=== PATIENT | male | born 1955 | race Caucasian/White ===

== ENCOUNTER → 2018-05-22 | Outpatient (CLI) | payer OTHER ==
[~2018-05-22] MED LIST: CANA300T PO; DILT180T3 PO; PSEU120T9 PO
[2018-05-22 07:40] LABS: BASOPHILS # (AUTO) 0.02 x10^3/uL (0-0.1); BASOPHILS % (AUTO) 0 % (0-1); EOSINOPHILS # (AUTO) 0.24 x10^3/uL (0-0.4); EOSINOPHILS % (AUTO) 3 % (1-7); LYMPHOCYTES # (AUTO) 1.72 x10^3/uL (1-3.4); LYMPHOCYTES % (AUTO) 18 % (22-44); MD NO; MEAN CORPUSCULAR HEMOGLOBIN 32.4 pg (27.5-34.5); MEAN CORPUSCULAR HGB CONC 34.7 g/dL (33.2-36.2); MEAN CORPUSCULAR VOLUME 93.5 fL (81-97); MEAN PLATELET VOLUME 6.8 fL (7.4-10.4); MONOCYTES # (AUTO) 0.81 x10^3/uL (0.2-0.8); MONOCYTES % (AUTO) 8 % (2-9); NEUTROPHILS # (AUTO) 6.99 x10^3/uL (1.8-6.8); NEUTROPHILS % (AUTO) 72 % (42-75); PLATELET COUNT 260 x10^3/uL (130-400); RED BLOOD COUNT 4.91 x10^6/uL (4.38-5.82); RED CELL DISTRIBUTION WIDTH 14.9 % (9.4-14.8)
[2018-05-22 07:53] LABS: ALANINE AMINOTRANSFERASE 34 U/L (12-78); ALBUMIN 4.2 g/dL (3.4-5.0); ANION GAP 7 mmol/L (5-15); CALCIUM 9.2 mg/dL (8.5-10.1); CHLORIDE 104 mmol/L (98-107); CHOLESTEROL, TOTAL 118 mg/dL (140-239); CREATININE 1.23 mg/dL (0.7-1.3); TRIGLYCERIDES 263 mg/dL (50-200); VLDL CHOLESTEROL 53 mg/dL (0-25)
[2018-05-22 08:04] LABS: ALKALINE PHOSPHATASE 73 U/L (45-117); BILIRUBIN,TOTAL 0.6 mg/dL (0.2-1.0); CHOL/HDL RATIO 4.7; HDL CHOL % 21 % (26-37); HDL CHOLESTEROL (DIRECT) 25 mg/dL (40-60); LDL CHOLESTEROL,CALCULATED 40 mg/dL (54-169); LDL/HDL RATIO 1.6 (0.5-3.0); TOTAL PROTEIN 7.6 g/dL (6.4-8.2)
== END | disposition home or self-care (01) ==
LOC: CVU 06:47
PROVIDERS: ATTEND Internal Medicine Cardiovascular Disease
DX: I71.4 Abdominal aortic aneurysm, without rupture (principal); I70.8 Atherosclerosis of other arteries; I10 Essential (primary) hypertension; E11.9 Type 2 diabetes mellitus without complications; E78.4 Other hyperlipidemia; Q60.0 Renal agenesis, unilateral
CPT/HCPCS: 36415; 80053; 80061; 82043; 82570; 84443; 85025; 93978

== ENCOUNTER → 2018-11-01 | Outpatient (CLI) | payer OTHER | END | disposition home or self-care (01) | LOC: CVU 06:59 | PROVIDERS: ATTEND Internal Medicine Cardiovascular Disease | DX: I71.4 Abdominal aortic aneurysm, without rupture (principal); I77.1 Stricture of artery | CPT/HCPCS: 93978 ==

== ENCOUNTER 2019-05-22 08:13 | Outpatient (CLI) | payer OTHER | END 2019-05-22 23:59 | disposition home or self-care (01) | LOC: CVU 08:13 | PROVIDERS: ATTEND Internal Medicine Cardiovascular Disease | DX: I71.4 Abdominal aortic aneurysm, without rupture (principal); I74.19 Embolism and thrombosis of other parts of aorta; N28.0 Ischemia and infarction of kidney; I10 Essential (primary) hypertension; F17.200 Nicotine dependence, unspecified, uncomplicated | CPT/HCPCS: 93978 ==

== ENCOUNTER → 2019-09-18 | Outpatient (CLI) | payer OTHER | END | disposition home or self-care (01) | LOC: CFH 13:35 | PROVIDERS: ATTEND Registered Nurse | DX: Z12.2 Encounter for screening for malignant neoplasm of respiratory organs (principal); I48.0 Paroxysmal atrial fibrillation; M19.90 Unspecified osteoarthritis, unspecified site; E11.8 Type 2 diabetes mellitus with unspecified complications; I10 Essential (primary) hypertension; Q42.8 Congenital absence, atresia and stenosis of other parts of large intestine; J43.8 Other emphysema; Z71.6 Tobacco abuse counseling; J43.2 Centrilobular emphysema; Z79.82 Long term (current) use of aspirin; G47.30 Sleep apnea, unspecified; F17.210 Nicotine dependence, cigarettes, uncomplicated | CPT/HCPCS: G0297 ==